=== PATIENT | male | born 1995 | race Caucasian/White ===

== ENCOUNTER 2017-05-11 17:12 | Emergency (ER) | payer BC ==
--- NOTE | 2017-05-11 17:39 | UC ---
Lower Extremity/Ankle HPI - HPI Summary HPI Summary: 21 year old male presents with complains of right knee injury while playing basketball. - History of Current Complaint Stated Complaint: RT KNEE INJURY Time Seen by Provider: 05/11/17 17:38 Hx Obtained From: Patient Onset/Duration: Sudden Onset Severity Initially: Moderate Severity Currently: Moderate Pain Scale Used: 0-10 Numeric - 8 Aggravating Factor(s): Standing Alleviating Factor(s): Rest, Elevation Able to Bear Weight: No - Allergies/Home Medications Allergies/Adverse Reactions: Allergies Allergy/AdvReac Type Severity Reaction Status Date / Time Penicillins Allergy Hives Verified 05/11/17 18:44 Home Medications: Home Medications NK [No Home Medications Reported] 05/11/17 [History Confirmed 05/11/17] PMH/Surg Hx/FS Hx/Imm Hx Previously Healthy: Yes - Surgical History Surgical History: None - Family History Known Family History: Positive: None - Social History Alcohol Use: Rare Substance Use Type: None Smoking Status (MU): Never Smoked Tobacco Review of Systems Constitutional: Negative Skin: Negative Eyes: Negative ENT: Negative Respiratory: Negative Cardiovascular: Negative Gastrointestinal: Negative Genitourinary: Negative Motor: Negative Neurovascular: Negative Musculoskeletal: Other: - right knee swelling/pain Neurological: Negative Psychological: Negative All Other Systems Reviewed And Are Negative: Yes Physical Exam Triage Information Reviewed: Yes Vital Signs Reviewed: Yes Eye Exam: Normal ENT Exam: Normal Dental Exam: Normal Neck exam: Normal Neck: Positive: 1 Respiratory Exam: Normal Cardiovascular Exam: Normal Abdominal Exam: Normal Musculoskeletal: Positive: Other: - right knee swelling/pain Neurological Exam: Normal Psychological Exam: Normal Skin Exam: Normal Lower Extremity Course/Dx - Differential Dx/Diagnosis Provider Diagnoses: right knee swelling/pain Discharge - Discharge Plan Condition: Stable Disposition: HOME Patient Education Materials: Knee Sprain (ED) Referrals: Michelle Aguayo PA [Primary Care Provider] - Chip Trejo MD [Medical Doctor] -
[2017-05-11 18:44] VITALS: BP 146/75
[2017-05-11] MEDS ORDERED: Acetaminophen TAB* 325 MG PO ONE (19:29)
--- NOTE | 2017-05-11 19:30 | RAD ---
INDICATION: Right knee injury COMPARISON: None TECHNIQUE: AP, lateral, tunnel, and sunrise views were obtained. FINDINGS: There is no acute bony change. The knee articulates normally. There is a small joint effusion. IMPRESSION: SMALL JOINT EFFUSION.
== END 2017-05-11 19:50 | disposition home or self-care (01) ==
LOC: UCCORT 17:12
DX: M25.561 Pain in right knee (principal); M25.461 Effusion, right knee; Z88.0 Allergy status to penicillin
CPT/HCPCS: 99213; A9270-GY; G0463